=== PATIENT | male | born 1965 | race Caucasian/White ===

== ENCOUNTER → 2018-08-03 | Outpatient (CLI) | payer MEDICARE, OTHER ==
--- NOTE | 2018-08-03 13:49 | RAD ---
CHEST PA LATERAL Clinical indications: PATIENT HAS HAD A PRODUCTIVE COUGH X1 MONTH. HX OF ASTHMA, COPD, CHF COMPARISON: April 18, 2013. Findings: Chronic bilateral perihilar haziness and interstitial lung infiltrates are seen. Chronic prominent pulmonary vasculature is seen. No new lung consolidation or pleural effusion or pneumothorax is seen. The heart size is enlarged but stable. Mediastinum is unchanged. The osseous structures appear intact. Impression: No new radiographic abnormality is seen. Electronically signed by: Phong Lubin MD (08/03/2018 1:46 PM) [facility] [place] [facility] [place]
== END | disposition home or self-care (01) ==
LOC: RAD 10:53
PROVIDERS: ATTEND Family Medicine
DX: I51.7 Cardiomegaly (principal); J44.9 Chronic obstructive pulmonary disease, unspecified; I50.9 Heart failure, unspecified
CPT/HCPCS: 71046